=== PATIENT | male | born 1995 | race Hispanic/Latino ===

== ENCOUNTER 2021-10-17 01:12 | Emergency (ER) | payer MEDICAID ==
--- NOTE | 2021-10-17 12:12 | Emergency Department Report ---
ED General Adult HPI - General Chief complaint: Psych Stated complaint: ANXIETY/PTSD Time Seen by Provider: 10/17/21 12:00 Source: patient, EMS ( EMS documentation not available at time of chart dictation ), RN notes reviewed Mode of arrival: Ambulatory Limitations: No Limitations - History of Present Illness Initial comments: The patient was evaluated in the emergency department for symptoms described in the history of present illness. He/she was evaluated in the context of the global COVID-19 pandemic, which necessitated consideration that the patient might be at risk for infection with the virus that causes COVID-19. Institutional protocols and algorithms that pertain to the evaluation of patients at risk for COVID-19 are in a state of rapid change based on information released by regulatory bodies including the CDC and federal and state organizations. These policies and algorithms were followed during the patient's care in the emergency department. Please note that these policies, procedures and recommendations changed on a rapid basis. This is a 26-year-old gentleman who presents to the department today with a complaint of painless anxiety and PTSD. He is not homicidal or suicidal. He is not experiencing hallucinations. He does not have access to guns or firearms. He denies physical pain. He reports that he is hungry and thirsty. He denies travel, surgery, immobilization, DVT and pulmonary embolism risk factors. He was given water and a meal tray in the emergency room, and felt markedly improved. -: days(s) Consistency: constant Associated Symptoms: denies other symptoms - Related Data Previous Rx's Medication Instructions Recorded Last Taken Type Divalproex Sodium [Depakote] 500 mg PO BID #60 tab 10/17/21 Unknown Rx Allergies Allergy/AdvReac Type Severity Reaction Status Date / Time No Known Allergies Allergy Verified 10/17/21 03:15 ED Review of Systems ROS: Stated complaint: ANXIETY/PTSD Other details as noted in HPI Comment: All other systems reviewed and negative Psychiatric: anxiety. denies: auditory hallucinations, visual hallucinations, homicidal thoughts, suicidal thoughts ED Past Medical Hx - Past Medical History Previous Medical History?: Yes Hx Psychiatric Treatment: Yes (PTSD, SCHIZOPHRENIA, ANXIETY, PANIC ATTACKS) - Surgical History Past Surgical History?: No - Social History Smoking Status: Never Smoker Substance Use Type: None - Medications Home Medications: Home Medications Medication Instructions Recorded Confirmed Last Taken Type Divalproex Sodium [Depakote] 500 mg PO BID #60 tab 10/17/21 Unknown Rx ED Physical Exam - General Limitations: No Limitations General appearance: alert, in no apparent distress - Head Head exam: Present: atraumatic, normocephalic - Eye Eye exam: Present: normal appearance, EOMI. Absent: nystagmus - ENT ENT exam: Present: normal exam, normal orophraynx, mucous membranes moist, normal external ear exam - Neck Neck exam: Present: normal inspection, full ROM. Absent: tenderness, meningismus - Respiratory Respiratory exam: Present: normal lung sounds bilaterally. Absent: respiratory distress, wheezes, rales, rhonchi, stridor, decreased breath sounds - Cardiovascular Cardiovascular Exam: Present: regular rate, normal rhythm, normal heart sounds. Absent: bradycardia, tachycardia, irregular rhythm, systolic murmur, diastolic murmur, rubs, gallop - GI/Abdominal GI/Abdominal exam: Present: soft. Absent: distended, tenderness, guarding, rebound, rigid, pulsatile mass - Rectal Rectal exam: Present: deferred - Extremities Exam Extremities exam: Present: normal inspection, full ROM, normal capillary refill, other (2+ pulses noted in the bilateral upper and lower extremities. There is no palpable cord. negative Homans sign. Muscular compartments are soft. The pelvis is stable.). Absent: pedal edema, calf tenderness - Back Exam Back exam: Present: normal inspection, full ROM. Absent: tenderness, CVA tenderness (R), CVA tenderness (L), paraspinal tenderness, vertebral tenderness - Neurological Exam Neurological exam: Present: alert, oriented X3, normal gait, other (No facial droop. Tongue midline. Extraocular movements intact bilaterally. Facial sensation intact to light touch in V1, V2, V3 distribution bilaterally. 5 and a 5 strength in 4 extremities. Sensation intact to light touch in 4 extremities.). Absent: motor sensory deficit - Psychiatric Psychiatric exam: Present: normal affect, normal mood. Absent: agitated, manic, homicidal ideation, suicidal ideation - Skin Skin exam: Present: warm, dry, intact, normal color. Absent: rash ED Course Vital Signs 10/17/21 10/17/21 03:13 12:50 Temperature 97.6 F Pulse Rate 60 Respiratory 18 Rate Blood Pressure 118/83 [Left] O2 Sat by Pulse 100 Oximetry O2 Sat by Pulse 99 Oximetry [ Digit-Finger] - Reevaluation(s) Reevaluation #1: 10/17/21 13:42 Requesting refill on Depakote 500 mg twice daily. - Pulse Oximetry Interpretation Digit-Finger Initial Pulse Oximetry Readin O2 Sat by Pulse Oximetry: 99 Actions Taken: none ED Medical Decision Making - Lab Data Vital Signs 10/17/21 03:13 Temperature 97.6 F Pulse Rate 60 Respiratory 18 Rate Blood Pressure 118/83 [Left] O2 Sat by Pulse 100 Oximetry - Medical Decision Making Differential diagnosis, including but not limited to: Encounter for medical screening examination, encounter for behavioral health screening examination Assessment and plan: 26-year-old gentleman, who is afebrile, with reassuring vital signs, clinically sober, with a GCS of 15, with no acute medical complaints today, with a primary psychiatric complaint of anxiety and PTSD. He does not meet criteria for 1013 hold or involuntary confinement. His physical exam is benign, noncontributory and unremarkable. He does not appear to have an emergent medical or psychiatric condition present today. I personally gave this patient water, and gave him a meal tray. He can follow-up with an outpatient psychiatrist or therapist to further discuss his PTSD, anxiety and psychosocial stressors. Return precautions are reviewed. All questions were answered Critical care attestation.: If time is entered above; I have spent that time in minutes in the direct care of this critically ill patient, excluding procedure time. ED Disposition Clinical Impression: Encounter for medical screening examination, Encounter for behavioral health screening Disposition: HOME / SELF CARE / HOMELESS Is pt being admited?: No Does the pt Need Aspirin: No Condition: Stable Additional Instructions: The patient is not found to have an emergent medical or psychiatric condition while present in the emergency room this evening Please follow-up with an outpatient mental health specialist within the next week. Avoid consumption of alcohol, tobacco, smoke products and recreational drugs. Please return to the emergency room right away with new pain, worsened pain, migration of pain, projectile vomiting, change in mental status, confusion, inability tolerate liquid feeds, new, worsened or different symptoms not present on the initial emergency room evaluation professional and Agency Contacts To help [facility] (14/11) [place] Crisis Line: Suicide Prevention Line: Crisis Text Line: Text ``START to 480604 Emergency: 911 Outpatient COMMUNITY Behavioral Health Resources: DEKALB: [facility] [address], [place] [address] [place]IL[place]: [facility] [address] [place] [address] Monday thru Monday - 8am - 5pm Call to schedule an assessment for mental health and substance abuse programs [place]: [facility] Address: [address] [place] [address] Monday thru Monday- 7am-2pm [facility] Address: [address], [place], [place] Monday thru Monday: 8:30AM-5PM [facility] [phone] [employer] Mental health clinic in [place], [place] COVID-19 info: [facility] Get online care: [employer] Address: [address], [place] [address] Hours: Open 24 hours Confirmed by this business 2 weeks ago Check insurance info [facility] [phone] [employer] reviews [facility] hospital in [place], [place] COVID info: cdc.gov Get online care: [employer] Address: [address] [place] [address] , [place] [address] Hours: Open 24 hours More hours Confirmed by this business 1 week ago Prescriptions: Divalproex Sodium [Depakote] 500 mg PO BID #60 tab Referrals: PRIMARY CARE, [Primary Care Provider] - 3-5 Days [facility] [Outside] - 3-5 Days [facility] [Outside] - 3-5 Days
[2021-10-17 13:48] VITALS: BP 115/65
== END 2021-10-17 13:48 | disposition home or self-care (01) ==
LOC: ED 01:12
DX: Z13.30 Encounter for screening examination for mental health and behavioral disorders, unspecified (principal); F41.9 Anxiety disorder, unspecified
CPT/HCPCS: 99283

== ENCOUNTER 2021-10-31 00:36 | Emergency (ER) | payer MEDICAID ==
[2021-10-31] MEDS ORDERED: SODIUM CHLORIDE 0.9% 1000 ML 1,000 ML IV ONE (02:48)
[2021-10-31] MEDS ORDERED: ONDANSETRON 4 MG/2 ML INJ IV ONE (02:48)
[2021-10-31] MEDS ORDERED: FAMOTIDINE 20 MG/2 ML INJ IV ONE (02:48)
[2021-10-31 03:36] LABS: Basophils % (Auto) 0.4 % (0.0-1.8); Eosinophils # (Auto) 0.1 K/mm3 (0.0-0.4); Eosinophils % (Auto) 1.9 % (0.0-4.3); Hematocrit 40.1 % (35.5-45.6); Hemoglobin 13.7 gm/dl (11.8-15.2); Lymphocytes % (Auto) 31.5 % (13.4-35.0); Mean Corpuscular HGB Conc 34 % (32-34); Mean Corpuscular Volume 93 fl (84-94); Monocytes # (Auto) 0.7 K/mm3 (0.0-0.8); Red Blood Count 4.31 M/mm3 (3.65-5.03); Red Cell Distribution Width 13.6 % (13.2-15.2)
[2021-10-31 03:39] LABS: Platelet Count 168 K/mm3 (140-440)
[2021-10-31 03:47] LABS: Alanine Aminotransferase 16 units/L (7-56); Albumin 4.5 g/dL (3.9-5); Blood Urea Nitrogen 10 mg/dL (9-20); Calcium 9.6 mg/dL (8.4-10.2); Hemolysis Index 5
[2021-10-31 03:53] LABS: BUN/Creatinine Ratio 14
--- NOTE | 2021-10-31 04:45 | Emergency Department Report ---
ED N/V/D HPI - General Chief complaint: Nausea/Vomiting/Diarrhea Stated complaint: DIARRHEA Source: patient, road roller operator hot mix Mode of arrival: Ambulatory Limitations: No Limitations - History of Present Illness Initial comments: Patient is a 26-year-old male with a history of PTSD, anxiety, panic attacks, depression, and schizophrenia who presents to the ED with complaint of acute onset nausea, diarrhea and mild abdominal pain for the last 3 days. Patient states that diarrhea has been persistent and that in the last 24 hours he has had up to 5 episodes. Patient is unsure as to the etiology of the diarrhea. Patient denies dizziness, syncope, vomiting, fever, chills, dysuria, urinary frequency and urgency, chest pain, cough, headache, hematemesis or hematochezia. MD complaint: nausea, diarrhea, abdominal pain -: Sudden, days(s) (3) Description of Vomiting: watery Description of Diarrhea: water Associated Abdominal Pain: Yes Location: diffuse Radiation: none Severity: moderate Pain Scale: 4 Quality: aching, dull Consistency: intermittent Improves with: none Worsens with: none Context: possible food poisoning Associated Symptoms: denies other symptoms, loss of appetite, malaise, na usea/vomiting. denies: myalgias, chest pain, cough, diaphoresis, fever/chills, headaches, rash, dysuria, shortness of breath, syncope, weakness, other - Related Data Previous Rx's Medication Instructions Recorded Last Taken Type Divalproex Sodium [Depakote] 500 mg PO BID #60 tab 10/17/21 Unknown Rx Dicyclomine [Bentyl] 20 mg PO Q6H PRN #20 tablet 10/31/21 Unknown Rx Ondansetron [Zofran Odt] 4 mg PO Q8HR PRN #15 tab.rapdis 10/31/21 Unknown Rx Allergies Allergy/AdvReac Type Severity Reaction Status Date / Time prednisone Allergy Itching Verified 10/31/21 01:35 ED Review of Systems ROS: Stated complaint: DIARRHEA Other details as noted in HPI Constitutional: denies: chills, fever Eyes: denies: eye pain, eye discharge, vision change ENT: denies: ear pain, throat pain Respiratory: denies: cough, shortness of breath, wheezing Cardiovascular: denies: chest pain, palpitations Endocrine: no symptoms reported Gastrointestinal: abdominal pain (Mild diffuse), nausea, diarrhea. denies: vom iting Genitourinary: denies: urgency, dysuria Musculoskeletal: denies: back pain, joint swelling, arthralgia Skin: denies: rash, lesions Neurological: denies: headache, weakness, paresthesias Psychiatric: denies: anxiety, depression Hematological/Lymphatic: denies: easy bleeding, easy bruising ED Past Medical Hx - Past Medical History Previous Medical History?: Yes Hx Psychiatric Treatment: Yes (PTSD, SCHIZOPHRENIA, ANXIETY, PANIC ATTACKS) - Surgical History Past Surgical History?: No - Social History Smoking Status: Never Smoker Substance Use Type: None - Medications Home Medications: Home Medications Medication Instructions Recorded Confirmed Last Taken Type Divalproex Sodium [Depakote] 500 mg PO BID #60 tab 10/17/21 Unknown Rx Dicyclomine [Bentyl] 20 mg PO Q6H PRN #20 tablet 10/31/21 Unknown Rx Ondansetron [Zofran Odt] 4 mg PO Q8HR PRN #15 tab.rapdis 10/31/21 Unknown Rx ED Physical Exam - General Limitations: No Limitations General appearance: alert, in no apparent distress - Head Head exam: Present: atraumatic, normocephalic, normal inspection - Eye Eye exam: Present: normal appearance, PERRL, EOMI Pupils: Present: normal accommodation - ENT ENT exam: Present: normal exam, normal orophraynx, mucous membranes moist, TM's normal bilaterally, normal external ear exam - Neck Neck exam: Present: normal inspection, full ROM. Absent: tenderness - Respiratory Respiratory exam: Present: normal lung sounds bilaterally. Absent: respiratory distress, wheezes, rales, rhonchi, chest wall tenderness, accessory muscle use, decreased breath sounds, prolonged expiratory - Cardiovascular Cardiovascular Exam: Present: regular rate, normal rhythm, normal heart sounds. Absent: systolic murmur, diastolic murmur, rubs, gallop - GI/Abdominal GI/Abdominal exam: Present: soft, normal bowel sounds. Absent: tenderness, guarding, rebound, hyperactive bowel sounds, hypoactive bowel sounds, organ omegaly - Extremities Exam Extremities exam: Present: normal inspection, full ROM, normal capillary refill. Absent: tenderness, pedal edema, joint swelling, calf tenderness - Back Exam Back exam: Present: normal inspection, full ROM. Absent: tenderness, CVA tenderness (R), CVA tenderness (L), muscle spasm, paraspinal tenderness, vertebral tenderness, rash noted - Neurological Exam Neurological exam: Present: alert, oriented X3, CN II-XII intact, normal gait, reflexes normal - Psychiatric Psychiatric exam: Present: normal affect, normal mood, flat affect. Absent: homicidal ideation, suicidal ideation - Skin Skin exam: Present: warm, dry, intact, normal color. Absent: rash ED Course Vital Signs 10/31/21 00:37 Temperature 98 F Pulse Rate 82 Respiratory 18 Rate Blood Pressure 110/76 Blood Pressure 110/76 [Left] O2 Sat by Pulse 99 Oximetry ED Medical Decision Making - Lab Data Result diagrams: 10/31/21 03:03 10/31/21 03:03 - Medical Decision Making This is a 26-year-old male with a history of PTSD, anxiety, panic attacks, depression, and schizophrenia who presents to the ED with complaint of acute onset nausea, diarrhea and mild abdominal pain for the last 3 days. Patient states that diarrhea has been persistent and that in the last 24 hours he has had up to 5 episodes. Patient is unsure as to the etiology of the diarrhea. In the ED, patient is alert and oriented x3 and is not in any distr ess. Patient is hemodynamically stable. Patient was treated in the ED with normal saline 1 L IV bolus x1, also given medication for pain, antacids and antiemetics. Lab test results were reviewed and are all nonactionable. On reevaluation, patient felt better was discharged home on medications and advised to follow-up with his primary care physician in 3 to 5 days for reevaluation. Patient was advised to return to the ED immediately if symptoms get worse. - Differential Diagnosis Viral gastroenteritis; GERD; dehydration; gastritis Critical care attestation.: If time is entered above; I have spent that time in minutes in the direct care of this critically ill patient, excluding procedure time. ED Disposition Clinical Impression: Viral gastroenteritis, Nausea, vomiting and diarrhea Disposition: 01 HOME / SELF CARE / HOMELESS Is pt being admited?: No Does the pt Need Aspirin: No Condition: Stable Instructions: Nausea and Vomiting, Adult, [id number], Viral Gastroenteritis, Adult, [id number], Diarrhea, Adult, [id number] Additional Instructions: All lab test results were reviewed and are all nonactionable. Therefore you are symptoms are likely viral in etiology. Take medication as advised, drink plenty of fluids, follow-up with your primary care physician in 3 to 5 days for reevaluation. Return to the ED immediately if symptoms get worse. Prescriptions: Dicyclomine [Bentyl] 20 mg PO Q6H PRN #20 tablet PRN Reason: Abdominal pain Ondansetron [Zofran Odt] 4 mg PO Q8HR PRN #15 tab.rapdis PRN Reason: Nausea Referrals: ROSEY JEFFERY MD [Primary Care Provider] - 3-5 Days Time of Disposition: 04:46 Print Language: BRAZILIAN
[2021-10-31 06:10] VITALS: BP 117/72
== END 2021-10-31 06:10 | disposition home or self-care (01) ==
LOC: ED 00:36
DX: A08.4 Viral intestinal infection, unspecified (principal); R11.2 Nausea with vomiting, unspecified; R19.7 Diarrhea, unspecified; F43.10 Post-traumatic stress disorder, unspecified; F20.9 Schizophrenia, unspecified; F41.9 Anxiety disorder, unspecified; F41.0 Panic disorder [episodic paroxysmal anxiety]; Z88.8 Allergy status to other drugs, medicaments and biological substances
CPT/HCPCS: 36415; 80053; 83690; 85025; 96361; 96374; 96375; 99284; J2405; J3490; J7030